=== PATIENT | female | born 1950 | race Caucasian/White ===

== ENCOUNTER → 2017-11-28 | Outpatient (CLI) | payer OTHER ==
[~2017-11-28] MED LIST: ATIVAN1 MG PO; CARAFATE1 GM PO; LYRICA50 MG PO; PRILOSEC40 MG PO; T3/T4 COMPOUND; VALIUM5 MG PO
--- NOTE | 2017-11-28 15:55 | Diagnostic Imaging Report ---
PROCEDURE: Frontal and lateral views of the chest. COMPARISON: None. INDICATIONS: SOB, CHEST TIGHTNESS FINDINGS: Lines/tubes: None. Lungs: The lungs are well inflated and clear. There is no evidence of pneumonia or pulmonary edema. Pleura: There is no pleural effusion or pneumothorax. Heart and mediastinum: Cardiac silhouette is unremarkable. Pulmonary vasculature is normal. Bones: No acute bony abnormality. IMPRESSION: 1. No acute cardiopulmonary abnormalities. Shekhar Carrillo M.D. Dictated by: Shekhar Carrillo M.D. on 11/28/2017 at 15:56 Electronically approved by: Shekhar Carrillo M.D. on 11/28/2017 at 15:56
== END ==
LOC: RAD 14:29
PROVIDERS: ATTEND Internal Medicine
DX: R06.02 Shortness of breath (principal)
CPT/HCPCS: 71046

== ENCOUNTER 2018-06-22 05:18 | Emergency (ER) | payer MEDICARE, BC ==
[~2018-06-22] VITALS: Ht 162.6 cm; Wt 70.8 kg
--- OUTSIDE RECORDS SUMMARY | 2018-06-22 05:21 | XMS REPORT ---
Author Viral Bradley eClinicalWorks Address Unknown Phone Unavailable Care Team Providers Care Clinical Microbiologist Name Role Phone Viral Bender CP Unavailable Allergies, Adverse Reactions, Alerts Substance Reaction Event Type codeine Info Not Available Drug Allergy Encounters Encounter Location Date May be RTA eligible. [facility] Mar 14, 2014 Problems Problem Type Condition ICD-9 Code Onset Dates Condition Status Assessment Lumbosacral root lesions, not elsewhere classified 353.4 Active Assessment Screening for tobacco use V70.3 Active Assessment Degeneration of lumbar or lumbosacral intervertebral disc 722.52 Active Assessment Screening for obesity V77.8 Active Medications Medication Code System Code Instructions Start Date End Date Status Dosage Advil MEDISPAN [address]-93 200 MG Orally every 6 hrs PRN Active 2 tablets Ativan MEDISPAN [address]-29 1 MG Orally QD Active 1 tablet Lyrica MEDISPAN [address]-78 50 mg Orally TID Active 1 capsule Thyroid MEDISPAN [address]-02 146.25 MG Orally QD Active 1 tablet Social History Social History Element Qualifiers Date Reported Education history . Bachelor's Degree yes Mar 14, 2014 Alcohol Screening: . Did you have a drink containing alcohol in the past year?: No, Points: 0, Interpretation: Negative Mar 14, 2014 Tobacco Use: . Are you a:: never smoker , Additional Findings: Tobacco Non-User: Current non-smoker Mar 14, 2014 Marital Status: . 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
--- OUTSIDE RECORDS SUMMARY | 2018-06-22 05:21 | XMS REPORT | Clinical Summary ---
Author Author [place] [facility] Address Unknown Phone Unavailable Care Team Providers Care Engineering Professor Name Role Phone Abdiel Aguayo MD PCP Allergies Comments Active Allergy Reactions Severity Noted Date Amoxicillin-Pot Itching Low 12/05/2015 Clavulanate Chest Pain Codeine Other (See High 12/05/2015 Comments) Medications End Date Status Medication Sig Dispensed Refills Start Date Active pregabalin (LYRICA) 50 MG 0 capsule 4 Active omeprazole (PriLOSEC) 20 Take 20 mg by 0 MG capsule mouth daily. Active sucralfate (CARAFATE) 1 Take 1 g by 0 gram tablet mouth 4 (four) times a day. Active diazePAM (VALIUM) 2 MG Take 2 mg by 0 tablet mouth every 6 (six) hours as needed for anxiety. Active THYROID, BULK, MISC 0 Active calcium carbonate (TUMS) Chew 1 tablet 0 200 mg calcium (500 mg) daily. chewable tablet 03/18/2018 Discontinued LORAZepam (ATIVAN) 0.5 MG Take by 0 tablet mouth. 03/18/2018 Discontinued PROGESTERONE VAGL Apply 1 mL 0 topically. 03/18/2018 Discontinued clobetasol 0.05 % lotion Apply 0 topically. 4 03/18/2018 Discontinued CHLORDIAZEPOXIDE/CLIDINIU Take by 0 M BR (LIBRAX, WITH mouth. CLIDINIUM, ORAL) Active Problems Problem Noted Date Anxiety 03/19/2018 Depression 03/19/2018 Encounters Care Team Description Date Type Specialty Priti Arreaga MD 04/08/2018 Anesthesia Gastroenterology Event Franko Avila MD ESOPHAGOGASTRODUODENOSCOPY (EGD) W/ COLLAZO 04/08/2018 Surgery Gastroenterology Franko Avila MD 04/08/2018 Hospital Gastroenterology Encounter Corby Redding MD Gastroesophageal reflux disease with esophagitis (Primary Dx); Hiatal hernia; Anxiety; Depression, unspecified depression type 03/18/2018 Office Visit General Surgery after 06/21/2017 Family History Medical History Relation Name Comments Arthritis Brother Arthritis Mother COPD Sister Relation Name Status Comments Brother Alive Father Maternal Grandfather Maternal Grandmother Mother Car Accident Paternal Grandfather Paternal Grandmother Sister Social History Date Tobacco Use Types Packs/Day Years Used Never Smoker Smokeless Tobacco: Never Used Alcohol Use Drinks/Week oz/Week Comments No Sex Assigned at Date Recorded Not on file Industry Job Start Date Occupation Not on file Not on file Not on file Travel End Travel History Travel Start No recent travel history available. Last Filed Vital Signs Time Taken Vital Sign Reading 04/08/2018 8:39 AM CDT Blood Pressure 112/64 04/08/2018 8:39 AM CDT Pulse 63 04/08/2018 7:42 AM CDT Temperature 36.9 C (98.5 F) 04/08/2018 8:39 AM CDT Respiratory Rate 15 04/08/2018 8:39 AM CDT Oxygen Saturation 96% - Inhaled Oxygen - Concentration 03/18/2018 2:28 PM CDT Weight 66.3 kg (146 lb 3.2 oz) 04/08/2018 7:42 AM CDT Height 162.6 cm (5' 4") 03/18/2018 2:28 PM CDT Body Mass Index 25.1 Plan of Treatment Health Maintenance Due Date Last Done Comments BREAST CANCER SCREENING 2001 COLON CANCER SCREENING 2001 SHINGRIX VACCINE (#1) 2001 ZOSTER VACCINE 2011 PNEUMOCOCCAL 2016 POLYSACCHARIDE VACCINE AGE 65 AND OVER PNEUMOCOCCAL-13 2016 INFLUENZA VACCINE 03/11/2018 Implants Device Identifier Shelf Expiration Date Model / Serial / Lot Implanted Type Area Manufactur er 01/20/2019 FGS 0312 / / [id number] Capsule Ph W/ Ds [place]azo - [id number] Surgical N/A: Esophagus GIVEN Implanted: 04/08/2018 (Quantity not Implants; IMAGING on file) Expanders; Extenders; Surgical Wires Procedures Comments Procedure Name Priority Date/Time Associated Diagnosis SURGICAL PATHOLOGY Routine 04/08/2018 REQUEST 8:09 AM CDT ESOPHAGOGASTRODUODENOSCOP 04/08/2018 GERD, HIATAL HERNIA Y (EGD) 8:00 AM CDT K21.9, K44.9 after 06/21/2017 Results * Surgical pathology request (04/08/2018 8:09 AM CDT) [facility] DEPARTMENT OF PATHOLOGY AND GENOMIC MEDICINE Surgical pathology report See link below for PDF Lab [facility] DEPARTMENT OF Report PATHOLOGY AND GENOMIC MEDICINE Result status This is Final Report for [facility] DEPARTMENT OF [id number] PATHOLOGY AND GENOMIC MEDICINE Performing Organization Address City/State/Zipcode Phone Number [facility] DEPARTMENT [address] [place] [address] PATHOLOGY AND GENOMIC MEDICINE after 06/21/2017 Insurance Payer Benefit Subscriber ID Type Phone Address Plan / Group MEDICARE MEDICARE xxxxxxxxxxx Medicare [place], [place] PART A AND B BCBS BCBS xxxxxxxxxxxx PPO CHOICE PPO/JEANNE LOPEZ PPO Advance Directives Patient has advance care planning documents on file. For more information, steven chopra contact: Pete West [address] [place] [address]
--- OUTSIDE RECORDS SUMMARY | 2018-06-22 05:21 | XMS REPORT ---
Author Viral Bradley eClinicalWorks Address Unknown Phone Unavailable Care Team Providers Care Teradata Developer Name Role Phone Viral Bender CP Unavailable Encounters Encounter Location Date EMG/NCV results [facility] Mar 29, 2015 May be RTA eligible. [facility] Mar 14, 2014 May be RTA eligible.;neck pain;Needs to know if she needs EMG [facility] Mar 22, 2015 Physical Therapy Script [facility] Apr 03, 2015 Social History Social History Element Qualifiers Date Reported Education history . Bachelor's Degree yes Mar 22, 2015 Alcohol Screening: . Did you have a drink containing alcohol in the past year?: No, Points: 0, Interpretation: Negative Mar 22, 2015 Tobacco Use: . Are you a:: never smoker , Additional Findings: Tobacco Non-User: Current non-smoker Mar 22, 2015 Marital Status: . 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
--- OUTSIDE RECORDS SUMMARY | 2018-06-22 05:21 | XMS REPORT ---
Author Viral Bradley [facility] eClinicalWorks Address Unknown Phone Unavailable Care Team Providers Care Road Mixer Operator Name Role Phone Viral Bender CP Unavailable Allergies, Adverse Reactions, Alerts Substance Reaction Event Type codeine Info Not Available Drug Allergy Problems Problem Type Condition Code Onset Dates Condition Status Problem Screening for obesity Z13.89 Active Problem Cervical myofascial pain syndrome M79.1 Active Problem Cervical spondylosis M47.812 Active Problem TMJ (temporomandibular joint disorder) M26.609 Active Problem Tobacco abuse Z72.0 Active Problem Disorder of teeth and supporting structures, unspecified K08.9 Active Problem 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 Active Problem Degenerative disc disease, cervical M50.30 Active Problem Bilateral occipital neuralgia M54.81 Active Problem Frontal headache R51 Active Assessment Occipital neuralgia of right side M54.81 Active Problem Cervicalgia M54.2 Active Assessment Screening for obesity Z13.89 Active Problem Sleep apnea in adult G47.33 Active Assessment Tobacco non-user Z78.9 Active Problem Tobacco non-user Z78.9 Active Medications Medication Code System Code Instructions Start Date End Date Status Dosage Lyrica NDC 91644410086 50 MG Orally TID Active 1 capsule Thyroid ND 82567478306 146.25 MG Orally BID Active 1 tablet Carafate NDC 47812122001 1 GM Orally Twice a day Active 1 tablet on an empty stomach [place] Thyroid NDC 55616141410 30 MG Orally daily Active 1 tablet Valium NDC 14319965372 10 mg Orally QD Active 1/2 tablet Tylenol Extra Strength NDC 73949659294 500 MG Orally every 6 hrs Active 1 tablet as needed Prilosec NDC 89455359290 20 MG PO QD Active 1 capsule Vital Signs Date/Time: October 29, 2016 BMI 23.00 Index Weight 134 lbs Height 64 in Results No Known Results Summary Purpose eClinicalWorks Submission
--- OUTSIDE RECORDS SUMMARY | 2018-06-22 05:21 | XMS REPORT ---
Author Author [facility] Address Unknown Phone Unavailable Care Team Providers Care Process Lead Name Role Phone GEOVANNY MYERS Unavailable Unavailable Problems This patient has no known problems. Allergies, Adverse Reactions, Alerts This patient has no known allergies or adverse reactions. Medications This patient has no known medications. Results Test Description Test Time Test Comments Text Results Atomic Results Result Comments CHEST 2 VIEWS [place] [address] Patient Name: GEOVANI HERNANDEZ MR #: [id number] : 1950 Age/Sex: 67/F Req #: [id number] Adm Physician: Ordered by: GEOVANNY MYERS MD Report #: [id number] Location: [facility] Room/Bed: Procedure: [id number] DX/CHEST 2 VIEWS Exam Date: 11/28/17 Exam Time: 1450 REPORT STATUS: Signed PROCEDURE: Frontal and lateral views of the chest. COMPARISON: None. INDICATIONS: SOB, CHEST TIGHTNESS FINDINGS: Lines/tubes: None. Lungs: The lungs are well inflated and clear. There is no evidence of pneumonia or pulmonary edema. Pleura: There is no pleural effusion or pneumothorax. Heart and mediastinum: Cardiac silhouette is unremarkable. Pulmonary vasculature is normal. Bones: No acute bony abnormality. IMPRESSION: 1. No acute cardiopulmonary abnormalities. Al Corrales M.D. Dictated by: Al Corrales M.D. on 11/28/2017 at 15:56 Electronically approved by: Al Corrales M.D. on 11/28/2017 at 15:56 Dictated By: AL CORRALES MD [id number] Transcribed By: GWENDOLYN on 11/28/171555 COPY TO: GEOVANNY MYERS MD
--- OUTSIDE RECORDS SUMMARY | 2018-06-22 05:21 | XMS REPORT ---
Author Viral Bradley [facility] eClinicalWorks Address Unknown Phone Unavailable Care Team Providers Care Data Support Specialist Name Role Phone Viral Bender CP Unavailable [...] headache R51 Active Assessment Occipital neuralgia of left side M54.81 Active Problem Cervicalgia M54.2 Active Assessment Screening for obesity Z13.89 Active Problem Sleep apnea in adult G47.33 Active Assessment Tobacco non-user Z78.9 Active Problem Tobacco non-user Z78.9 Active Medications Medication Code System Code Instructions Start Date End Date Status Dosage [place] Thyroid NDC 04905004761 30 MG Orally daily Active 1 tablet Valium ND 35187521280 10 mg Orally QD Active 1/2 tablet Thyroid ND 01677394289 146.25 MG Orally BID Active 1 tablet Tylenol Extra Strength ND 80769267432 500 MG Orally every 6 hrs Active 1 tablet as needed Carafate ND 59235794262 1 GM Orally Twice a day Active 1 tablet on an empty stomach Prilosec ND 98728412704 20 MG PO QD Active 1 capsule Lyrica ND 27070517944 50 MG Orally TID Active 1 capsule Results No Known Results Summary Purpose eClinicalWorks Submission
--- OUTSIDE RECORDS SUMMARY | 2018-06-22 05:21 | XMS REPORT ---
Author Author Lilia Polanco [facility] eClinicalWorks Address Unknown Phone Unavailable Care Team Providers Care Chemistry Research Assistant Name Role Phone Lilia Polanco Unavailable Allergies, Adverse Reactions, Alerts Substance Reaction Event Type codeine Info Not Available Drug Allergy Encounters Encounter Location Date May be RTA eligible. [facility] Mar 14, 2014 May be RTA eligible.;neck pain;Needs to know if she needs EMG [facility] Mar 22, 2015 Physical Therapy Script [facility] Apr 03, 2015 Problems Problem Type Condition ICD-9 Code Onset Dates Condition Status Assessment Screening for tobacco use V70.3 Active Assessment Cervicalgia 723.1 Active Assessment Spinal stenosis in cervical region 723.0 Active Assessment Brachial neuritis or radiculitis nos. 723.4 Active Assessment Special screening for other specified conditions V82.89 Active Assessment Screening for obesity V77.8 Active Assessment Lumbosacral root lesions, not elsewhere classified 353.4 Active Assessment Degeneration of lumbar or lumbosacral intervertebral disc 722.52 Active Medications Medication Code System Code Instructions Start Date End Date Status Dos[facility] [address]-01 146.25 MG Orally QD Active 1 tablet [facility]ilosec [facility] [address]-87 40 mg Orally QD Active 1 capsule Lyrica [facility] [address]-05 50 mg Orally TID Active 1 capsule Valium [facility] [address]-10 10 mg Orally QD Active 1/2 tablet Advil [facility] [address]-94 200 MG Orally every 6 hrs PRN Active 2 tablets Tylenol Extra Strength MEDISPAN [address]-48 500 MG Orally every 6 hrs Active 1 tablet as needed Ativan [facility] [address]-38 1 MG Orally QD Active 1 tablet Social [...] 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
--- OUTSIDE RECORDS SUMMARY | 2018-06-22 05:21 | XMS REPORT ---
Author Viral Bradley [facility] eClinicalWorks Address Unknown Phone Unavailable Care Team Providers Care Paint Roller Covers Supervisor Name Role Phone Viral Bender CP Unavailable Encounters Encounter Location Date EMG/NCV results [facility] Mar 29, 2015 May be RTA eligible.;confirmed [facility] May 17, 2015 May be RTA eligible. [facility] January 02, 2016 Confirmed, notified of location change -edegollado [facility] February 20, 2016 May be RTA eligible. [facility] Mar 14, 2014 May be RTA eligible.;neck pain;Needs to know if she needs EMG [facility] Mar 22, 2015 Physical Therapy Script [facility] Apr 03, 2015 Script for PT [facility] Jun 06, 2016 Problems Problem Type Condition ICD-9 Code Onset Dates Condition Status Problem Tobacco non-user Z78.9 Active Problem Sleep apnea in adult G47.33 Active Problem Degenerative disc disease, cervical M50.30 Active Problem Cervical myofascial pain syndrome M79.1 Active Problem 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 Active Problem Cervicalgia M54.2 Active Problem Screening for obesity Z13.89 Active Problem Occipital neuralgia M54.81 Active Problem Cervical spondylosis M47.812 Active Social History Social History Element Qualifiers Date Reported Education history . Bachelor's Degree yes Jun 10, 2016 Alcohol Screening: . Did you have a drink containing alcohol in the past year?: No, Points: 0, Interpretation: Negative Jun 10, 2016 Tobacco Use: . Are you a:: never smoker , Additional Findings: Tobacco Non-User: Current non-smoker Jun 10, 2016 Marital Status: . 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
--- OUTSIDE RECORDS SUMMARY | 2018-06-22 05:21 | XMS REPORT ---
Author Viral Bradley eClinicalWorks Address Unknown Phone Unavailable Care Team Providers Care Patent Engineer Name Role Phone Viral Bender CP Unavailable Allergies, Adverse Reactions, Alerts Substance Reaction Event Type codeine Info Not Available Drug Allergy Encounters Encounter Location Date EMG/NCV results [facility] Mar 29, 2015 May be RTA eligible.;confirmed [facility] May 17, 2015 May be RTA eligible. [facility] January 02, 2016 May be RTA eligible. [facility] Mar 14, 2014 May be RTA eligible.;neck pain;Needs to know if she needs EMG [facility] Mar 22, 2015 Physical Therapy Script [facility] Apr 03, 2015 Problems Problem Type Condition ICD-9 Code Onset Dates Condition Status Assessment Screening for obesity Z13.89 Active Assessment Cervical myofascial pain syndrome M79.1 Active Assessment Tobacco non-user Z78.9 Active Problem Occipital neuralgia M54.81 Active Problem Cervical spondylosis M47.812 Active Problem Cervical myofascial pain syndrome M79.1 Active Problem Tobacco non-user Z78.9 Active Problem Sleep apnea in adult G47.33 Active Problem Cervicalgia M54.2 Active Problem Screening for obesity Z13.89 Active Medications Medication Code System Code Instructions Start Date End Date Status Dosage Tylenol Extra Strength MEDISPAN [address]-40 500 MG Orally every 6 hrs Active 1 tablet as needed Valium MEDISPAN [address]-85 10 mg Orally QD Active 1/2 tablet Prilosec MEDISPAN [address]-30 40 mg Orally QD Active 1 capsule Lyrica MEDISPAN [address]-55 50 mg Orally TID Active 1 capsule Carafate MEDISPAN [address]-67 1 GM Orally Twice a day Active 1 tablet on an empty stomach Thyroid MEDISPAN [address]-93 146.25 MG Orally QD Active 1 tablet Social History Social History Element Qualifiers Date Reported Education history . Bachelor's Degree yes January 02, 2016 Alcohol Screening: . Did you have a drink containing alcohol in the past year?: No, Points: 0, Interpretation: Negative January 02, 2016 Tobacco Use: . Are you a:: never smoker , Additional Findings: Tobacco Non-User: Current non-smoker January 02, 2016 Marital Status: . 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, 2016 Family history Qualifier Description Comment Date Reported Maternal Grandmother Comment not available January 02, 2016 Paternal Grandmother Comment not available January 02, 2016 Siblings Comment not available January 02, 2016 Maternal Grandfather Comment not available January 02, 2016 Children Comment not available January 02, 2016 Father Comment not available January 02, 2016 Paternal Grandfather Comment not available January 02, 2016 Mother Comment not available January 02, 2016 Other: Comment not available January 02, 2016 Vital Signs Date/Time: January 02, 2016 Weight 138 lbs Height 64 in Summary Purpose eClinicalWorks Submission
--- OUTSIDE RECORDS SUMMARY | 2018-06-22 05:21 | XMS REPORT ---
Author Viral Bradley eClinicalWorks Address Unknown Phone Unavailable Care Team Providers Care Client Renewal Specialist Name Role Phone Viral Bender CP Unavailable Allergies, Adverse Reactions, Alerts Substance Reaction Event Type codeine Info Not Available Drug Allergy Encounters Encounter Location Date EMG/NCV results [facility] Mar 29, 2015 May be RTA eligible.;confirmed [facility] May 17, 2015 May be RTA eligible. [facility] January 02, 2016 Confirmed, notified of location change -edegollado [facility] February 20, 2016 May be RTA eligible. [facility] Mar 14, 2014 May be RTA eligible.;neck pain;Needs to know if she needs EMG [facility] Mar 22, 2015 Physical Therapy Script [facility] Apr 03, 2015 Problems Problem Type Condition ICD-9 Code Onset Dates Condition Status Assessment Degenerative disc disease, cervical M50.30 Active Problem Sleep apnea in adult G47.33 Active Assessment Cervical spondylosis M47.812 Active Assessment Screening for obesity Z13.89 Active Assessment Tobacco non-user Z78.9 Active Problem Cervical myofascial pain syndrome M79.1 Active Problem Occipital neuralgia M54.81 Active Problem Degenerative disc disease, cervical M50.30 Active Problem Screening for obesity Z13.89 Active Problem Tobacco non-user Z78.9 Active Problem Cervical spondylosis M47.812 Active Problem Cervicalgia M54.2 Active Medications Medication Code System Code Instructions Start Date End Date Status Dos[facility] [address]-78 20 MG PO QD Active 1 capsule Tylenol Extra St[facility] [address]-09 500 MG Orally every 6 hrs Active 1 tablet as needed Carafate [facility] [address]-26 1 GM Orally Twice a day Active 1 tablet on an empty stomach Valium [facility] [address]-29 10 mg Orally QD Active 1/2 tablet Thyroid [facility] [address]-89 146.25 MG Orally BID Active 1 tablet Lyrica [facility] [address]-62 50 mg Orally TID Active 1 capsule Social History Social History Element Qualifiers Date Reported Education history . Bachelor's Degree yes February 20, 2016 Alcohol Screening: . Did you have a drink containing alcohol in the past year?: No, Points: 0, Interpretation: Negative February 20, 2016 Tobacco Use: . Are you a:: never smoker , Additional Findings: Tobacco Non-User: Current non-smoker February 20, 2016 Marital Status: . 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, 2016 Family history Qualifier Description Comment Date Reported Maternal Grandmother Comment not available February 20, 2016 Paternal Grandmother Comment not available February 20, 2016 Siblings Comment not available February 20, 2016 Maternal Grandfather Comment not available February 20, 2016 Children Comment not available February 20, 2016 Father Comment not available February 20, 2016 Paternal Grandfather Comment not available February 20, 2016 Mother Comment not available February 20, 2016 Other: Comment not available February 20, 2016 Vital Signs Date/Time: February 20, 2016 Weight 134 lbs Height 64 in Summary Purpose eClinicalWorks Submission
--- OUTSIDE RECORDS SUMMARY | 2018-06-22 05:21 | XMS REPORT ---
Author Viral Bradley e[employer] Address Unknown Phone Unavailable Care Team Providers Care Senior Cyber Security Analyst Name Role Phone Viral Bender CP Unavailable Allergies, Adverse Reactions, Alerts Substance Reaction Event Type codeine Info Not Available Drug Allergy Encounters Encounter Location Date EMG/NCV results [facility] Mar 29, 2015 May be RTA eligible.;confirmed [facility] May 17, 2015 May be RTA eligible. [facility] January 02, 2016 Confirmed, notified of location change -edegollado [facility] February 20, 2016 May be RTA eligible. 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 Active Problem Tobacco non-user Z78.9 Active Problem Sleep apnea in adult G47.33 Active Assessment Screening for obesity Z13.89 Active Assessment Tobacco non-user Z78.9 Active Problem Degenerative disc disease, cervical M50.30 Active Problem Cervical myofascial pain syndrome M79.1 Active Problem 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 Active Problem Cervicalgia M54.2 Active Problem Screening for obesity Z13.89 Active Problem Occipital neuralgia M54.81 Active Problem Cervical spondylosis M47.812 Active Medications Medication Code System Code Instructions Start Date End Date Status Dosage Tylenol Extra Strength MEDISPAN [address]-77 500 MG Orally every 6 hrs Active 1 tablet as needed Lyrica MEDISPAN [address]-12 50 MG Orally TID Active 1 capsule [place] Thyroid MEDISPAN [address]-88 30 MG Orally daily Active 1 tablet Prilosec MEDISPAN [address]-07 20 MG PO QD Active 1 capsule Valium MEDISPAN [address]-56 10 mg Orally QD Active 1/2 tablet Carafate [facility] [address]-06 1 GM Orally Twice a day Active 1 tablet on an empty stomach Thyroid [facility] [address]-71 146.25 MG Orally BID Active 1 tablet Social History Social History [...] Other: Comment not available Jun 10, 2016 Vital Signs Date/Time: Jun 10, 2016 Weight 142 lbs Height 64 in Summary Purpose eClinicalWorks Submission
--- OUTSIDE RECORDS SUMMARY | 2018-06-22 05:21 | XMS REPORT | Continuity of Care Document ---
Author Author [facility] Interface Address Unknown Phone Unavailable Problems Problem Status Onset Date Classification Date Reported Comments Source UNK Active 03/27/2018 [facility] Lumbosacral root lesions, not elsewhere classified Active Diagnosis 03/31/2015 [facility] Screening for tobacco use Active Diagnosis 03/31/2015 [facility] Degeneration of lumbar or lumbosacral intervertebral disc Active Diagnosis 03/31/2015 [facility] Screening for obesity Active Diagnosis 03/31/2015 [facility] Screening for obesity Active Problem 02/23/2018 [facility] Cervical myofascial pain syndrome Active Problem 02/23/2018 [facility] Cervical spondylosis Active Problem 02/23/2018 [facility] TMJ Active Problem 02/23/2018 [facility] Tobacco abuse Active Problem 02/23/2018 [facility] Disorder of teeth and supporting structures, unspecified Active Problem 02/23/2018 [facility] Spondylosis of cervical region without myelopathy or radiculopathy Active Problem 02/23/2018 [facility] Degenerative disc disease, cervical Active Problem 02/23/2018 [facility] Bilateral occipital neuralgia Active Problem 02/23/2018 [facility] Frontal headache Active Problem 02/23/2018 [facility] Occipital neuralgia of left side Active Diagnosis 02/23/2018 [facility] Cervicalgia Active Problem 02/23/2018 [facility] Sleep apnea in adult Active Problem 02/23/2018 [facility] Tobacco non-user Active Diagnosis 02/23/2018 [facility] Cervicalgia Active Diagnosis 03/31/2015 [facility] Spinal stenosis in cervical region Active Diagnosis 03/31/2015 [facility] Brachial neuritis or radiculitis nos. Active Diagnosis 03/31/2015 [facility] Special screening for other specified conditions Active Diagnosis 03/31/2015 [facility] Occipital neuralgia of right side Active Diagnosis 02/08/2018 [facility] Occipital neuralgia Active Problem 09/01/2016 [facility] Medications Medication Details Route Status Patient Instructions Ordering Provider Order Date Source Advil 2 tablets Orally Active 200 MG Orally every 6 hrs ALICE Polanco [facility] Ativan 1 tablet Orally Active 1 MG Orally QD [place] [facility] Lyrica 1 capsule Orally Active 50 MG Orally TID Yulia [facility] Thyroid 1 tablet Orally Active 146.25 MG Orally BID Yulia [facility] [place] Thyroid 1 tablet Orally Active 30 MG Orally daily Yulia [facility] Valium 1/2 tablet Orally Active 10 mg Orally QD Yulia [facility] Thyroid 1 tablet Orally Active 146.25 MG Orally BID Yulia [facility] Tylenol Extra Strength 1 tablet as needed Orally Active 500 MG Orally every 6 hrs Yulia [facility] Carafate 1 tablet on an empty stomach Orally Active 1 GM Orally Twice a day Yulia [facility] Prilosec 1 capsule PO Active 20 MG PO QD Yulia [facility] Lyrica 1 capsule Orally Active 50 MG Orally TID Yulia [facility] Prilosec 1 capsule Orally Active 40 mg Orally QD Yulia [facility] Valium 1/2 tablet Orally Active 10 mg Orally QD Yulia [facility] Tylenol Extra Strength 1 tablet as needed Orally Active 500 MG Orally every 6 hrs Yulia [facility] [place] Thyroid 1 tablet Orally Active 30 MG Orally daily Yulia [facility] Prilosec 1 capsule PO Active 20 MG PO QD Yulia [facility] Carafate 1 tablet on an empty stomach Orally Active 1 GM Orally Twice a day [facility] Allergies, Adverse Reactions, Alerts Substance Category Reaction Severity Reaction type Status Date Reported Comments Source codeine Adverse Reaction Info Not Available Adverse Reaction Active 10/31/2016 [facility] Immunizations Immunization Date Given Site Status Last Updated Comments Source Results Order Name Results Value Reference Range Date Interpretation Comments Source Vital Signs Vital Sign Value Date Comments Source Weight 134 10/29/2016 [facility] Height 64 10/29/2016 [facility] Weight 142 06/10/2016 [facility] Height 64 06/10/2016 [facility] Weight 134 02/20/2016 [facility] Height 64 02/20/2016 [facility] Weight 138 01/02/2016 [facility] Height 64 01/02/2016 [facility] Weight 141 03/22/2015 [facility] Height 64 03/22/2015 [facility] Weight 150 03/14/2014 [facility] Height 64 03/14/2014 [facility] Encounters Location Location Details Encounter Type Encounter Number Reason For Visit Attending Provider ADM Date DC Date Status Source [facility] May be RTA eligible. [id number] 03/14/2014 03/14/2014 [facility] May be RTA eligible. [id number] 03/14/2014 03/14/2014 [facility] May be RTA eligible. [id number] 03/14/2014 03/14/2014 [facility] May be RTA eligible. [id number] 03/14/2014 03/14/2014 [facility] May be RTA eligible. [id number] 03/14/2014 03/14/2014 [facility] May be RTA eligible. [id number] 03/14/2014 03/14/2014 [facility] May be RTA eligible. [id number] 03/14/2014 03/14/2014 [facility] May be RTA eligible.;neck pain;Needs to know if she needs EMG [id number] 03/22/2015 03/22/2015 [facility] May be RTA eligible.;neck pain;Needs to know if she needs EMG [id number] 03/22/2015 03/22/2015 [facility] May be RTA eligible.;neck pain;Needs to know if she needs EMG [id number] 03/22/2015 03/22/2015 [facility] May be RTA eligible.;neck pain;Needs to know if she needs EMG [id number] 03/22/2015 03/22/2015 [facility] May be RTA eligible.;neck pain;Needs to know if she needs EMG [id number] 03/22/2015 03/22/2015 [facility] May be RTA eligible.;neck pain;Needs to know if she needs EMG [id number] 03/22/2015 03/22/2015 [facility] EMG/NCV results [id number] 03/30/2015 03/30/2015 [facility] EMG/NCV results [id number] 03/30/2015 03/30/2015 [facility] EMG/NCV results [id number] 03/30/2015 03/30/2015 [facility] EMG/NCV results [id number] 03/30/2015 03/30/2015 [facility] EMG/NCV results [id number] 03/30/2015 03/30/2015 [facility] Physical Therapy Script [id number] 04/03/2015 04/03/2015 [facility] Physical Therapy Script [id number] 04/03/2015 04/03/2015 [facility] Physical Therapy Script [id number] 04/03/2015 04/03/2015 [facility] Physical Therapy Script [id number] 04/03/2015 04/03/2015 [facility] Physical Therapy Script [id number] 04/03/2015 04/03/2015 [facility] Physical Therapy Script [id number] 04/03/2015 04/03/2015 [facility] May be RTA eligible.;confirmed [id number] 05/17/2015 05/17/2015 [facility] May be RTA eligible.;confirmed [id number] 05/17/2015 05/17/2015 [facility] May be RTA eligible.;confirmed [id number] 05/17/2015 05/17/2015 [facility] May be RTA eligible.;confirmed [id number] 05/17/2015 05/17/2015 [facility] May be RTA eligible. [id number] 01/02/2016 01/02/2016 [facility] May be RTA eligible. [id number] 01/02/2016 01/02/2016 [facility] May be RTA eligible. [id number] 01/02/2016 01/02/2016 [facility] May be RTA eligible. [id number] 01/02/2016 01/02/2016 [facility] Confirmed, notified of location change -[place]ollado [id number] 02/20/2016 02/20/2016 [facility] Confirmed, notified of location change -[place]oll[place] [id number] 02/20/2016 02/20/2016 [facility] Confirmed, notified of location change -[place] [id number] 02/20/2016 02/20/2016 [facility] Script for PT [id number] 06/06/2016 06/06/2016 [facility] Script for PT [id number] 06/06/2016 06/06/2016 [facility] Unknown [id number] 06/10/2016 06/10/2016 [facility] Procedures Procedure Code Date Perfomer Comments Source
[2018-06-22] MEDS ORDERED: PANTOPRAZOLE 40 MG 10ML VIAL IV STA (05:37)
[2018-06-22] MEDS ORDERED: ONDANSETRON HCL INJ 2 MG/ML VIAL IV STA ×2 (05:37→08:41)
[2018-06-22] MEDS ORDERED: SODIUM CHLORIDE 0.9% 1000ML 1,000 ML IV ONE (05:45)
[2018-06-22 06:10] LABS: BASOPHILS % 0.3 % (0.0-1.0); EOSINOPHILS # (AUTO) 0.2 (0.0-0.4); EOSINOPHILS % 1.2 % (0.0-6.0); HEMATOCRIT 40.4 % (34.2-44.1); HEMOGLOBIN 13.8 g/dL (12.0-16.0); LYMPHOCYTES # (AUTO) 0.6 (1.0-3.2); MEAN CORPUSCULAR HGB CONC 34.2 g/dL (31-35); MEAN CORPUSCULAR VOLUME 87.8 fL (81-99); MONOCYTES # (AUTO) 0.4 (0.2-0.8); NEUTROPHILS # (AUTO) 11.6 (2.1-6.9); NEUTROPHILS % 90.2 % (38.7-80.0); PLATELET COUNT 351 x10e3/uL (140-360); RED CELL DISTRIBUTION WIDTH 14.1 % (11.7-14.4)
[2018-06-22 06:14] LABS: BILIRUBIN,URINE NEGATIVE (NEGATIVE); CLARITY,URINE MUCOUS (CLEAR); COLOR,URINE YELLOW (YELLOW); KETONES,URINE NEGATIVE (NEGATIVE); LEUKOCYTE ESTERASE ,URINE NEGATIVE (NEGATIVE); NITRITE,URINE NEGATIVE (NEGATIVE); PROTEIN,URINE DIPSTICK NEGATIVE (NEGATIVE); URINE UROBILINOGEN 0.2 mg/dL (0.2 - 1)
[2018-06-22 06:23] LABS: BACTERIA,URINE RARE /HPF; EPITHELIAL CELLS,URINE RARE /LPF
[2018-06-22 06:24] LABS: AMORPHOUS SEDIMENT,URINE RARE (FEW); TRANSITIONAL EPI CELLS,URINE RARE; YEAST,URINE FEW
[2018-06-22 06:33] LABS: ALANINE AMINOTRANSFERASE 42 IU/L (0-55); ALBUMIN 4.3 g/dL (3.5-5.0); ALBUMIN/GLOBULIN RATIO 1.3 (0.8-2.0); ALKALINE PHOSPHATASE 65 IU/L (40-150); AMYLASE 56 U/L (25-125); ANION GAP 14.7 mmol/L (8-16); BLOOD UREA NITROGEN 19 mg/dL (7-26); BUN/CREATININE RATIO 22 (6-25); CALCIUM 10.2 mg/dL (8.4-10.2); CARBON DIOXIDE 28 mmol/L (22-29); CHLORIDE 96 mmol/L (98-107); CREATININE, SERUM 0.85 mg/dL (0.57-1.11); EST GLOMERULAR FILTRATION RATE > 60 ML/MIN (60-); GLUCOSE 170 mg/dL (74-118); LIPASE 136 U/L (8-78); POTASSIUM 3.7 mmol/L (3.5-5.1); SODIUM 135 mmol/L (136-145)
[2018-06-22] MEDS ORDERED: SODIUM CHLORIDE 0.9% 50ML 50 ML ONE (06:42)
[2018-06-22] MEDS ORDERED: IOPAMIDOL 370 MG/ML 200 ML INFUS..BTL INJ ONE (06:42)
--- NOTE | 2018-06-22 07:37 | Diagnostic Imaging Report ---
PROCEDURE: CT ABDOMEN AND PELVIS WITH CONTRAST TECHNIQUE: The abdomen and pelvis were scanned utilizing a multidetector helical scanner from the diaphragm to the lesser trochanter after the IV administration of 100 cc of Isovue 370 and the oral administration of 900 cc of water. Coronal and sagittal multiplanar reformations were obtained. COMPARISON: Report from CT Abdomen/Pelvis 09/11/2016 (images not available for review at the time of this dictation. INDICATIONS: ABDOMINAL DISTENTION, VOMITING FINDINGS: LOWER THORAX: Normal. HEPATOBILIARY: Subcentimeter hypodense lesion at the hepatic dome is too small to characterize, but likely represents a cyst. No biliary ductal dilatation. Status post cholecystectomy. SPLEEN: No splenomegaly. PANCREAS: No focal masses or ductal dilatation. ADRENALS: No adrenal nodules. KIDNEYS/URETERS: No hydronephrosis, stones, or solid mass lesions. PELVIC ORGANS/BLADDER: Unremarkable. PERITONEUM / RETROPERITONEUM: No free air or fluid. LYMPH NODES: No lymphadenopathy. VESSELS: Mild atherosclerotic changes in the right common iliac artery. GI TRACT: No distention or wall thickening. Mildly prominent fluid filled jejunal loops measuring up to 2.9 cm with mucosal enhancement. Small hiatal hernia. BONES AND SOFT TISSUES: Unremarkable. IMPRESSION: No evidence of bowel obstruction. Mildly prominent fluid filled jejunal loops which could represent enteritis in a patient with vomiting. Dictated by: WILLIAM COSTA M.D. on 06/22/2018 at 7:47 Electronically approved by: WILLIAM COSTA M.D. on 06/22/2018 at 7:47
[2018-06-22] MEDS ORDERED: CEFTRIAXONE SOD 1 GM VIAL IV NR (08:45)
== END 2018-06-22 09:15 | disposition home or self-care (01) ==
LOC: ER 05:18
DX: R11.2 Nausea with vomiting, unspecified (principal); K52.9 Noninfective gastroenteritis and colitis, unspecified; E03.9 Hypothyroidism, unspecified; K21.9 Gastro-esophageal reflux disease without esophagitis; F41.9 Anxiety disorder, unspecified
CPT/HCPCS: 36415; 74177; 80053; 81001; 82150; 83690; 85025; 99284; J0696; J2405; J7030; Q9967

== ENCOUNTER → 2018-11-02 | Outpatient (CLI) | payer MEDICARE, BC ==
--- NOTE | 2018-11-02 12:34 | Diagnostic Imaging Report ---
EXAM: BONE MINERAL DENSITY HISTORY: Bone mineralization evaluation COMPARISON: None DISCUSSION: Evaluation of the left hip and lumbar spine was performed utilizing DEXA Hologic bone densitometer. The study is technically adequate. Left hip femoral neck bone mineral density: 0.76 g/cm2, T-score is -0.8, Z-score is 0.8. Left hip total bone mineral density: 0.76 g/cm2, T-score is -1.4, Z-score is -0.1. Lumbar spine total bone mineral density: 0.97 gm/cm2, T-score is -0.7, Z-score is 1.2. 10 year fracture risk major osteoporotic fracture 8.1% and hip fracture 0.6%. Impression: Bone mineralization by WHO Classification is low bone mass/osteopenia, the fracture risk is increased. Signed by: Dr. Jad Nguyen M.D. on 11/02/2018 12:31 PM
== END ==
LOC: MAMMO 09:59
PROVIDERS: ATTEND Internal Medicine
DX: Z12.31 Encounter for screening mammogram for malignant neoplasm of breast (principal); Z13.820 Encounter for screening for osteoporosis; Z78.0 Asymptomatic menopausal state
CPT/HCPCS: 77067; 77080

== ENCOUNTER 2018-11-05 11:00 | Outpatient (RCR) | payer MEDICARE, BC | END 2018-11-08 | LOC: PT 11:00 | PROVIDERS: ATTEND Internal Medicine | DX: M54.5 Low back pain (principal); M62.81 Muscle weakness (generalized); M53.86 Other specified dorsopathies, lumbar region ==

== ENCOUNTER → 2019-04-27 | Outpatient (CLI) | payer MEDICARE, BC ==
--- NOTE | 2019-04-27 14:10 | Diagnostic Imaging Report ---
Thyroid ultrasound. History: History of endocrine disorder. Comparison: None available. Discussion: Transverse and longitudinal images of the thyroid were obtained demonstrating diffusely heterogeneous echogenicity of the thyroid. The sizes of the lobes are normal with the right thyroid lobe measuring 4.7 x 1.4 x 1.8 cm and the left measuring 4.3 x 1.2 x 1.5 cm. The isthmus measures 5 mm in thickness. No focal nodules are present. IMPRESSION: Heterogeneous thyroid gland without focal nodule. Signed by: Parag Suarez on 04/27/2019 2:07 PM
== END ==
LOC: US 12:49
PROVIDERS: ATTEND Internal Medicine
DX: Z86.39 Personal history of other endocrine, nutritional and metabolic disease (principal)
CPT/HCPCS: 76536

== ENCOUNTER 2021-10-27 13:07 | Emergency (ER) | payer MEDICARE, BC ==
[~2021-10-27] VITALS: Ht 162.6 cm; Wt 70.8 kg
[2021-10-27] MEDS ORDERED: SODIUM CHLORIDE 0.9% 1000ML 1,000 ML IV STA (13:38)
[2021-10-27] MEDS ORDERED: ONDANSETRON HCL INJ 2MG/ML 2ML 2 MG/ML VIAL IV NR (13:45)
[2021-10-27 14:00] LABS: BASOPHILS % 0.3 % (0.0-1.0); EOSINOPHILS % 0.3 % (0.0-6.0); HEMATOCRIT 43.1 % (34.2-44.1); HEMOGLOBIN 14.2 g/dL (12.0-16.0); LYMPHOCYTES # (AUTO) 0.6 (1.0-3.2); LYMPHOCYTES % 5.3 % (18.0-39.1); MEAN CORPUSCULAR HEMOGLOBIN 29.8 pg (28-32); MEAN CORPUSCULAR HGB CONC 32.9 g/dL (31-35); MEAN CORPUSCULAR VOLUME 90.4 fL (81-99); MONOCYTES # (AUTO) 0.2 (0.2-0.8); MONOCYTES % 2.1 % (4.4-11.3); NEUTROPHILS # (AUTO) 10.5 (2.1-6.9); NEUTROPHILS % 91.7 % (38.7-80.0); PLATELET COUNT 298 x10e3/uL (140-360); RED BLOOD COUNT 4.77 x10e6/uL (3.6-5.1); RED CELL DISTRIBUTION WIDTH 14.2 % (11.7-14.4)
[2021-10-27 14:28] LABS: ALBUMIN 4.3 g/dL (3.5-5.0); ALBUMIN/GLOBULIN RATIO 1.2 (0.8-2.0); ANION GAP 15.3 mmol/L (8-16); CALCIUM 9.5 mg/dL (8.4-10.2); CREATININE, SERUM 0.84 mg/dL (0.57-1.11); POTASSIUM 4.3 mmol/L (3.5-5.1)
[2021-10-27 14:35] LABS: CREATINE KINASE MB 0.6 ng/mL (0-5.0)
[2021-10-27 14:40] LABS: CLARITY,URINE CLOUDY (CLEAR); COLOR,URINE YELLOW (YELLOW); KETONES,URINE NEGATIVE (NEGATIVE); LEUKOCYTE ESTERASE ,URINE NEGATIVE (NEGATIVE); NITRITE,URINE NEGATIVE (NEGATIVE); PROTEIN,URINE DIPSTICK NEGATIVE (NEGATIVE)
[2021-10-27 14:41] LABS: AMORPHOUS SEDIMENT,URINE MANY (FEW); BACTERIA,URINE MANY /HPF; EPITHELIAL CELLS,URINE MANY /LPF; URINE UROBILINOGEN 0.2 mg/dL (0.2 - 1)
[2021-10-27 16:09] VITALS: BP 111/59
== END 2021-10-27 16:11 | disposition home or self-care (01) ==
LOC: ER 13:18
DX: R11.2 Nausea with vomiting, unspecified (principal); N39.0 Urinary tract infection, site not specified; R10.9 Unspecified abdominal pain; Z20.822 Contact with and (suspected) exposure to COVID-19
CPT/HCPCS: 36415; 74022; 80053; 81001; 82550; 82553; 83690; 84484; 85025; 87086; 93005; 99284; C9113; J2405; J7030; U0002

== ENCOUNTER → 2022-11-26 | Day surgery (SDC) | payer MEDICARE, BC ==
[2022-11-22 14:43] LABS: BASOPHILS # (AUTO) 0.1 (0.0-0.1); BASOPHILS % 1.2 % (0.0-1.0); EOSINOPHILS # (AUTO) 0.4 (0.0-0.4); EOSINOPHILS % 4.8 % (0.0-6.0); HEMATOCRIT 38.8 % (34.2-44.1); HEMOGLOBIN 12.8 g/dL (12.0-16.0); LYMPHOCYTES # (AUTO) 2.3 (1.0-3.2); LYMPHOCYTES % 29.7 % (18.0-39.1); MEAN CORPUSCULAR HEMOGLOBIN 29.4 pg (28-32); MONOCYTES # (AUTO) 0.5 (0.2-0.8); MONOCYTES % 6.9 % (4.4-11.3); NEUTROPHILS # (AUTO) 4.4 (2.1-6.9); NEUTROPHILS % 57.3 % (38.7-80.0); PLATELET COUNT 307 x10e3/uL (140-360); RED BLOOD COUNT 4.36 x10e6/uL (3.6-5.1); RED CELL DISTRIBUTION WIDTH 14.5 % (11.7-14.4)
[2022-11-22 15:29] LABS: ALBUMIN 3.7 g/dL (3.5-5.0); ALBUMIN/GLOBULIN RATIO 1.1 (0.8-2.0); ANION GAP 13.8 mmol/L (8-16); CALCIUM 9.4 mg/dL (8.4-10.2); CREATININE, SERUM 0.8 mg/dL (0.57-1.11); POTASSIUM 3.8 mmol/L (3.5-5.1)
[2022-11-26] VITALS (8 sets, daily range): BP systolic 101–128; BP diastolic 60–70
[~2022-11-26] VITALS: Ht 165.1 cm; Wt 64.4 kg
[~2022-11-26] MED LIST changes: +ALPRAZOLAM 0.5 MG TAB ONE; +DEXAMETHASONE SOD PHOS 10 MG/1 ML VIAL ONE; +DIPHENHYDRAMINE HCL 25 MG CAP ONE; +FENTANYL CITRATE/PF 100MCG/2 ML INJ ONE; +HEPARIN SOD (PORCINE) 1000 UNIT/ML 30ML ONE; +HEPARIN SOD/SOD CHLORIDE 2,000 ML ONE; +IOPAMIDOL 370 MG/ML 100 ML INFUS..BTL INJ ONE; +LIDOCAINE HCL 2% LOCAL 20 ML VIAL ONE; +MAGNESIUM GLYC120 MG PO; +MIDAZOLAM HCL 2 MG/2 ML VIAL ONE; +PANTOPRAZOLE SO40 MG PO; +SODIUM CHLORIDE 0.9% 1000ML 1,000 ML ONE; +VERAPAMIL HCL 2.5 MG/ML 2 ML VIAL ONE
== END | disposition home or self-care (01) ==
LOC: CATH LAB 11:03
PROVIDERS: ATTEND Internal Medicine Interventional Cardiology
DX: I25.118 Atherosclerotic heart disease of native coronary artery with other forms of angina pectoris (principal); Z71.82 Exercise counseling; Z71.3 Dietary counseling and surveillance; Z88.6 Allergy status to analgesic agent; Z88.0 Allergy status to penicillin; Z01.812 Encounter for preprocedural laboratory examination; Z79.899 Other long term (current) drug therapy
CPT/HCPCS: 36415; 80053; 80061; 85025; 93458; C1887; J2001; J2250; J3010; J7030; Q9967; 99152; J1100; J1644

== ENCOUNTER 2022-12-06 09:50 | Emergency (ER) | payer MEDICARE, BC ==
[~2022-12-06] VITALS: Ht 165.1 cm; Wt 64.4 kg
[~2022-12-06 09:50] MED LIST changes: -ALPRAZOLAM 0.5 MG TAB ONE; -DEXAMETHASONE SOD PHOS 10 MG/1 ML VIAL ONE; -DIPHENHYDRAMINE HCL 25 MG CAP ONE; -FENTANYL CITRATE/PF 100MCG/2 ML INJ ONE; -HEPARIN SOD (PORCINE) 1000 UNIT/ML 30ML ONE; -HEPARIN SOD/SOD CHLORIDE 2,000 ML ONE; -IOPAMIDOL 370 MG/ML 100 ML INFUS..BTL INJ ONE; -LIDOCAINE HCL 2% LOCAL 20 ML VIAL ONE; -MIDAZOLAM HCL 2 MG/2 ML VIAL ONE; -SODIUM CHLORIDE 0.9% 1000ML 1,000 ML ONE; -VERAPAMIL HCL 2.5 MG/ML 2 ML VIAL ONE
[2022-12-06 11:20] LABS: CLARITY,URINE CLEAR (CLEAR); COLOR,URINE YELLOW (YELLOW); KETONES,URINE NEGATIVE (NEGATIVE); LEUKOCYTE ESTERASE ,URINE NEGATIVE (NEGATIVE); NITRITE,URINE NEGATIVE (NEGATIVE); PROTEIN,URINE DIPSTICK NEGATIVE (NEGATIVE); URINE UROBILINOGEN 0.2 mg/dL (0.2 - 1)
[2022-12-06 11:39] LABS: BACTERIA,URINE FEW /HPF; EPITHELIAL CELLS,URINE RARE /LPF; RBC,URINE 0-5 /HPF (0-5); WBC,URINE (MAN) 0-5 /HPF (0-5)
[2022-12-06 11:57] VITALS: BP 141/76
== END 2022-12-06 12:00 | disposition home or self-care (01) ==
LOC: ER 09:59
DX: R53.82 Chronic fatigue, unspecified (principal); E03.9 Hypothyroidism, unspecified; K21.9 Gastro-esophageal reflux disease without esophagitis; F41.9 Anxiety disorder, unspecified; M54.9 Dorsalgia, unspecified; G89.29 Other chronic pain
CPT/HCPCS: 81001; 99282